=== PATIENT | female | born 2000 | race African-American/Black ===

== ENCOUNTER 2025-01-11 01:09 | Emergency (ER) | payer SELFPAY ==
[~2025-01-11] VITALS: Ht 160 cm; Wt 49.0 kg
[2025-01-11 01:19] VITALS: TEMP 36.7; O2SAT 98
[2025-01-11 02:24] LABS: BASOPHILS % 0.3 % (0.0-2.0); EOSINOPHILS % 2.3 % (0.0-5.0); HEMATOCRIT. 41.5 % (36.0-48.0); HEMOGLOBIN. 13.5 g/dL (12.0-16.0); LYMPHOCYTES % 40.1 % (20.0-50.0); MEAN PLATELET VOLUME 8.7 fl (7.4-10.4); MONOCYTES % 9.7 % (2.0-8.0); NEUTROPHILS % 47.6 % (40.0-76.0); PLATELET 189 x1000/uL (130-400); RED BLOOD CELL COUNT 4.75 mill/uL (4.2-5.4); RED CELL DISTRIBUTION WIDTH 13.9 % (11.6-14.6)
[2025-01-11 02:31] LABS: CREATININE 0.7 mg/dL (0.6-1.0); UREA NITROGEN BLOOD 9 mg/dL (9-23)
[2025-01-11 02:32] LABS: ETHANOL BLOOD 266 mg/dL (<10)
[2025-01-11] MEDS: SODIUM CHLORIDE 0.9% 1,000 ML IV ONE (02:35)
[2025-01-11 06:20] VITALS: BP 113/68; PULSE 83; RESP 17; O2SAT 98
== END 2025-01-11 06:20 | disposition home or self-care (01) ==
LOC: ER 01:09
DX: T51.0X1A Toxic effect of ethanol, accidental (unintentional), initial encounter (principal); G92.9 Unspecified toxic encephalopathy; Y92.89 Other specified places as the place of occurrence of the external cause
CPT/HCPCS: 36415; 80048; 80320; 85025; 99283; J7030; G0480